=== PATIENT | female | born 1990 | race African-American/Black ===

== ENCOUNTER 2017-07-14 16:48 | Emergency (ER) | payer BC ==
[~2017-07-14] VITALS: Ht 165.1 cm; Wt 63.5 kg
[2017-07-14 16:57] VITALS: BP 100/64
--- NOTE | 2017-07-14 17:09 | NUR ---
PATIENT TO ED DT FEVER AND SORE THROAT SINCE YESTERDAY. PATIENT IS AAO4. APPEARS IN NO APPARENT DISTRESS. RESPIRATION EVEN AND UNLABORED. FEBRILE AT THIS TIME. OTHER VSS
[2017-07-14] MEDS ORDERED: ACETAMINOPHEN ES 500 MG TABLET ONE (17:52)
[2017-07-14] MEDS ORDERED: IBUPROFEN 400 MG TABLET ONE (17:53)
[2017-07-14] MEDS ORDERED: IBUPROFEN 400 MG TABLET PO ONE (18:00)
[2017-07-14] MEDS ORDERED: ACETAMINOPHEN ES 500 MG TABLET PO ONE (18:00)
== END 2017-07-14 18:04 | disposition home or self-care (01) ==
LOC: ER 16:50
DX: J02.9 Acute pharyngitis, unspecified (principal)
CPT/HCPCS: 99283; A4606; Z7610